=== PATIENT | male | born 1995 | race Caucasian/White ===

== ENCOUNTER 2021-09-11 06:34 | Emergency (ER) | payer BC, OTHER ==
[2021-09-11] MEDS ORDERED: Sodium Chloride 0.9% 10 ML Syringe FLUSH PRN (07:38)
[2021-09-11] MEDS ORDERED: Ondansetron 4 MG/2 ML SDV IV ONE (07:44)
[2021-09-11] MEDS ORDERED: HYDROmorphone 0.5 MG/0.5 ML Syringe IVPUSH ONE (08:03)
[2021-09-11] MEDS ORDERED: HYDROmorphone 0.5 MG/0.5 ML Syringe ONE (08:04)
[2021-09-11 08:21] LABS: AMPHETAMINES,URINE NEGATIVE (NEGATIVE); BARBITURATES,URINE NEGATIVE (NEGATIVE); BENZODIAZEPINE,URINE NEGATIVE (NEGATIVE); MDMA (ECSTASY), URINE NEGATIVE (NEGATIVE); METHADONE,URINE NEGATIVE (NEGATIVE); METHAMPHETAMINES,URINE NEGATIVE (NEGATIVE); OPIATES,URINE NEGATIVE (NEGATIVE); OXYCODONE,URINE NEGATIVE (NEGATIVE); PHENCYCLIDINE,URINE NEGATIVE (NEGATIVE); TCA,URINE NEGATIVE (NEGATIVE)
[2021-09-11 08:28] LABS: ANION GAP 13.7 mEq/L (7-13); CHLORIDE,CL 101 mmol/L (98-107); SODIUM,NA 139 mmol/L (136-145)
[2021-09-11 08:47] LABS: ESTIMATED GFR 96 mL/min (>=60)
[2021-09-11] MEDS ORDERED: Iopamidol 612 MG/ML 100 ML Bottle IVPUSH ONE (09:00)
[2021-09-11] MEDS ORDERED: Sodium Chloride 0.9% 1,000 ML IV ONE (09:00)
[2021-09-14 13:46] LABS: C.TRACHOMATIS BY TMA Negative (Negative); N.GONORRHOEAE BY TMA Negative (Negative)
== END 2021-09-11 11:24 ==
LOC: DL.ED 06:34
DX: K80.00 Calculus of gallbladder with acute cholecystitis without obstruction (principal); F17.210 Nicotine dependence, cigarettes, uncomplicated
CPT/HCPCS: 36415; 74177; 80053; 80305; 80307; 81001; 82150; 83690; 85025; 87491; 87563; 87591; 96361; 96374; 96375; 99285; J1170; J2405; J3490; J7030; Q9967; 99284